=== PATIENT | female | born 1960 | race Caucasian/White ===

== ENCOUNTER 2023-08-16 14:51 | Observation (INO) | payer BC ==
--- NOTE | 2023-08-16 16:09 | ED ---
General Adult HPI - General Chief complaint: Recheck/Abnormal Lab/Rx Stated complaint: Abd Pain Time Seen by Provider: 08/16/23 15:45 Source: patient, RN notes reviewed, old records reviewed Mode of arrival: ambulatory Limitations: no limitations - History of Present Illness Initial comments: This is a 63-year-old female who presents to the emergency department stating that this morning she went over to [facility] and was diagnosed with acute appendicitis and they told her she needed to go to a facility that the surgeon. Patient came here still complaining of right lower quadrant abdominal pain which she states has been ongoing for couple of days. Patient denies any fever chills patient states she does have some lower back pain. Patient states she has been a little queasy but not vomited yet. - Related Data Allergies Allergy/AdvReac Type Severity Reaction Status Date / Time Sulfa (Sulfonamide Allergy Dyspnea Verified 08/16/23 15:14 Antibiotics) sulfamethoxazole Allergy Dyspnea Verified 08/16/23 15:14 [From Bactrim] trimethoprim [From Bactrim] Allergy Dyspnea Verified 08/16/23 15:14 Review of Systems ROS Statement: Those systems with pertinent positive or pertinent negative responses have been documented in the HPI. ROS Other: All systems not noted in ROS Statement are negative. 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 Patient is nontoxic and well- hydrated and is in mild distress. ENT: Neck is soft and supple. No significant lymphadenopathy is noted. Oropharynx is clear. Moist mucous membranes. Neck has full range of motion without eliciting any pain. EYES: The sclera were anicteric and conjunctiva were pink and moist. Extraocular movements were intact and pupils were equal round and reactive to light. Eyelids were unremarkable. PULMONARY: Unlabored respirations. Good breath sounds bilaterally. No audible rales rhonchi or wheezing was noted. CARDIOVASCULAR: There is a regular rate and rhythm without any murmurs gallops or rubs. ABDOMEN: Right lower quadrant abdominal pain with rebound SKIN: Skin is clear with no lesions or rashes and otherwise unremarkable. NEUROLOGIC: Patient is alert and oriented x3. Cranial nerves II through XII are grossly intact. Motor and sensory are also intact. Normal speech, volume and content. Symmetrical smile. MUSCULOSKELETAL: Normal extremities with adequate strength and full range of motion. LYMPHATICS: No significant lymphadenopathy is noted PSYCHIATRIC: Normal psychiatric evaluation. Limitations: no limitations Course Vital Signs 08/16/23 08/16/23 15:07 16:35 Temperature 98.1 F 98.1 F Pulse Rate 75 77 Respiratory 18 16 Rate Blood Pressure 161/87 140/94 O2 Sat by Pulse 100 100 Oximetry Medical Decision Making - Medical Decision Making Was pt. sent in by a medical professional or institution (, PA, OFFICE CLERK ROUTINE, urgent care, hospital, or fdc...) When possible be specific @ -Patient was sent in by [facility] however they did not call our ER Did you speak to anyone other than the patient for history (EMS, parent, family, police, friend...)? What history was obtained from this source @ -No Did you review nursing and triage notes (agree or disagree)? Why? @ -I reviewed and agree with nursing and triage notes Were old charts reviewed (outside hosp., previous admission, EMS record, old EKG , old radiological studies, urgent care reports/EKG's, fdc records)? Report findings @ -No old charts were reviewed Differential Diagnosis (chest pain, altered mental status, abdominal pain women, abdominal pain men, vaginal bleeding, weakness, fever, dyspnea, syncope, headache, dizziness, GI bleed, back pain, seizure, CVA, palpatations, mental health, musculoskeletal)? @ -Differential Abdominal Pain Women: Appendicitis, Cholecystitis, diverticulosis, ischemic bowel, pancreatitis, hepatitis, UTI, gastroenteritis, AAA, incarcerated hernia, bowel obstruction, constipation, inflammatory bowel, hepatitis, peptic ulcer disease, splenic infarction, perforated viscus, vulvitis, ovarian torsion, PID, kidney stone, placenta abruption, this is not meant to be an all-inclusive list EKG interpreted by me (3pts min.). @ -As above X-rays interpreted by me (1pt min.). @ -None done CT interpreted by me (1pt min.). @ -None done U/S interpreted by me (1pt. min.). @ -None done What testing was considered but not performed or refused? (CT, X-rays, U/S, labs)? Why? @ -None What meds were considered but not given or refused? Why? @ -None Did you discuss the management of the patient with other professionals (professionals i.e. , PA, OFFICE CLERK ROUTINE, lab, RT, psych nurse, social media campaign manager, drug and alcohol treatment specialist, teacher, safety and security officer, lead case manager)? Give summary @ -I spoke with Dr. Farfan he agreed to meet the patient Was smoking cessation discussed for >3mins.? @ -No Was critical care preformed (if so, how long)? @ -No Were there social determinants of health that impacted care today? How? (Homelessness, low income, unemployed, alcoholism, drug addiction, transportation, low edu. Level, literacy, decrease access to med. care, mcc, rehab)? @ -No Was there de-escalation of care discussed even if they declined (Discuss DNR or withdrawal of care, Hospice)? DNR status @ -No What co-morbidities impacted this encounter? (DM, HTN, Smoking, COPD, CAD, Cancer, CVA, ARF, Chemo, Hep., AIDS, mental health diagnosis, sleep apnea, morbid obesity)? @ -None Was patient admitted / discharged? Hospital course, mention meds given and route, prescriptions, significant lab abnormalities, going to OR and other pertinent info. @ -I reviewed the CAT scan that the patient brought with her. I spoke with Dr. Farfan she does have acute appendicitis. Patient will be admitted and Dr. Pruitt will take her to surgery. Patient also started on antibiotics. Undiagnosed new problem with uncertain prognosis? @ -No Drug Therapy requiring intensive monitoring for toxicity (Heparin, Nitro, Insulin, Cardizem)? @ -No Were any procedures done? @ -No Diagnosis/symptom? @ -Acute appendicitis Acute, or Chronic, or Acute on Chronic? @ -Acute Uncomplicated (without systemic symptoms) or Complicated (systemic symptoms)? @ -Complicated Side effects of treatment? @ -No Exacerbation, Progression, or Severe Exacerbation? @ -No Poses a threat to life or bodily function? How? (Chest pain, [place], [place], pneumonia, PE, COPD, DKA, ARF, appy, cholecystitis, CVA, Diverticulitis, Homicidal, Suicidal, threat to staff... and all critical care pts) @ -Yes this could lead to sepsis and endorgan dysfunction Disposition Clinical Impression: Acute appendicitis Disposition: ADMITTED IP TO THIS HOSP Referrals: Fish Hernandez MD [Primary Care Provider] - 1-2 days Time of Disposition: 16:52
[2023-08-16] MEDS: PIPERACILLIN-TAZOBACTAM 3.375 GM in SODIUM CHLORIDE 0.9% 100 ML IVPB STA (16:29)
[2023-08-16 16:48] LABS: Basophils # (A) 0.1 k/uL (0-0.2); Basophils % (A) 1 %; Eosinophils # (A) 0.3 k/uL (0-0.7); Eosinophils % (A) 3 %; HCT 45.1 % (34.0-46.0); HGB 14.5 gm/dL (11.4-16.0); Lymphocytes # (A) 2.5 k/uL (1.0-4.8); Lymphocytes % (A) 25 %; MCH 27.1 pg (25.0-35.0); MCHC 32.2 g/dL (31.0-37.0); MCV 84.1 fL (80.0-100.0); Mean Platelet Volume 8.4; Monocytes # (A) 0.6 k/uL (0-1.0); Monocytes % (A) 6 %; Neutrophils # (A) 6.4 k/uL (1.3-7.7); Neutrophils % (A) 64 %; Platelet Count 332 k/uL (150-450); RBC 5.36 m/uL (3.80-5.40); RDW 13.7 % (11.5-15.5); WBC 10.1 k/uL (3.8-10.6)
[2023-08-16 16:59] LABS: ALT 28 U/L (4-34); AST 28 U/L (14-36); African American GFR (CKD) >90 (>60 ml/min/1.73 sqM); Albumin 4.3 g/dL (3.5-5.0); Alkaline Phosphatase 88 U/L (38-126); Amylase 49 U/L (30-110); Anion Gap 6 mmol/L; Blood Urea Nitrogen 19 mg/dL (7-17); Calcium 9.8 mg/dL (8.4-10.2); Carbon Dioxide 26 mmol/L (22-30); Chloride 106 mmol/L (98-107); Glucose 95 mg/dL (74-99); Lipase 67 U/L (23-300); Non-African American GFR(CKD) 86 (>60 ml/min/1.73 sqM); Potassium 4.5 mmol/L (3.5-5.1); Sodium 138 mmol/L (137-145); Total Bilirubin 0.5 mg/dL (0.2-1.3); Total Protein 7.3 g/dL (6.3-8.2)
[2023-08-16] MEDS: SODIUM CHLORIDE 0.9% 1,000 ML IV ONE ×2 (17:10→20:17)
--- NOTE | 2023-08-16 19:52 | P.GSHP ---
History of Present Illness H&P Date: 08/16/23 Chief Complaint: Acute appendicitis 63-year-old female comes to the hospital after being seen apparently at [facility]. She underwent CAT scan for complaints of right lower abdominal pain. CAT scan apparently showed appendicitis and she was discharged home with plans to go to a different facility that had surgical coverage. Patient having some radiation of pain to the lower back. Mild anorexia. No nausea or vomiting. No fevers. CAT scan reviewed and does show acute appendicitis. White blood cell count currently normal. Surgical history includes cholecystectomy and hernia. 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 History of Any Multi-Drug Resistant Organisms: None Reported Past Surgical History: Cholecystectomy, Hernia Repair Past Psychological History: No Psychological Hx Reported Smoking Status: Former smoker Past Alcohol Use History: Occasional Past Drug Use History: None Reported Medications and Allergies Home Medications Medication Instructions Recorded Confirmed Type Multivitamins, Thera [Multivitamin 1 tab PO DAILY 08/16/23 08/16/23 History (formulary)] Turmeric Root Extract [Turmeric] 500 mg PO DAILY 08/16/23 08/16/23 History lisinopriL [Zestril] 10 mg PO DAILY 08/16/23 08/16/23 History Allergies Allergy/AdvReac Type Severity Reaction Status Date / Time Sulfa (Sulfonamide Allergy Dyspnea Verified 08/16/23 17:55 Antibiotics) sulfamethoxazole Allergy Dyspnea Verified 08/16/23 17:55 [From Bactrim] trimethoprim [From Bactrim] Allergy Dyspnea Verified 08/16/23 17:55 Surgical - Exam Vital Signs Temp Pulse Resp BP Pulse Ox 98.1 F 75 18 161/87 100 08/16/23 15:07 08/16/23 15:07 08/16/23 15:07 08/16/23 15:07 08/16/23 15:07 Physical exam: General: Well-developed, well-nourished HEENT: Normocephalic, sclerae nonicteric Abdomen: Right lower quadrant tenderness nondistended Extremities: No edema Neuro: Alert and oriented Results - Labs 08/16/23 16:14 08/16/23 16:14 Abnormal Lab Results - Last 24 Hours (Table) 08/16/23 Range/Units 16:14 BUN 19 H (7-17) mg/dL Diabetes panel 08/16/23 Range/Units 16:14 Sodium 138 (137-145) mmol/L Potassium 4.5 (3.5-5.1) mmol/L Chloride 106 (98-107) mmol/L Carbon Dioxide 26 (22-30) mmol/L BUN 19 H (7-17) mg/dL Creatinine 0.75 (0.52-1.04) mg/dL Glucose 95 (74-99) mg/dL Calcium 9.8 (8.4-10.2) mg/dL AST 28 (14-36) U/L ALT 28 (4-34) U/L Alkaline Phosphatase 88 (38-126) U/L Total Protein 7.3 (6.3-8.2) g/dL Albumin 4.3 (3.5-5.0) g/dL Calcium panel 08/16/23 Range/Units 16:14 Calcium 9.8 (8.4-10.2) mg/dL Albumin 4.3 (3.5-5.0) g/dL Pituitary panel 08/16/23 Range/Units 16:14 Sodium 138 (137-145) mmol/L Potassium 4.5 (3.5-5.1) mmol/L Chloride 106 (98-107) mmol/L Carbon Dioxide 26 (22-30) mmol/L BUN 19 H (7-17) mg/dL Creatinine 0.75 (0.52-1.04) mg/dL Glucose 95 (74-99) mg/dL Calcium 9.8 (8.4-10.2) mg/dL Adrenal panel 08/16/23 Range/Units 16:14 Sodium 138 (137-145) mmol/L Potassium 4.5 (3.5-5.1) mmol/L Chloride 106 (98-107) mmol/L Carbon Dioxide 26 (22-30) mmol/L BUN 19 H (7-17) mg/dL Creatinine 0.75 (0.52-1.04) mg/dL Glucose 95 (74-99) mg/dL Calcium 9.8 (8.4-10.2) mg/dL Total Bilirubin 0.5 (0.2-1.3) mg/dL AST 28 (14-36) U/L ALT 28 (4-34) U/L Alkaline Phosphatase 88 (38-126) U/L Total Protein 7.3 (6.3-8.2) g/dL Albumin 4.3 (3.5-5.0) g/dL Assessment and Plan (1) Acute appendicitis Narrative/Plan: 63-year-old female with acute appendicitis. Will proceed with laparoscopic, possible open appendectomy at this time. Risks of bleeding, infection, scarring, hernia, conversion to an open procedure, cardiac and respiratory compl ications, injury to the bladder small bowel or ureter discussed. She understands and wishes to proceed. Current Visit: Yes Status: Acute Code(s): K35.80 - UNSPECIFIED ACUTE APPENDICITIS SNOMED Code(s): 27393992
[2023-08-16] MEDS ORDERED: ONDANSETRON 4 MG/2 ML VIAL ONE (20:17)
[2023-08-16] MEDS ORDERED: fentaNYL (PF) 50 MCG/ML 2 ML AMP ONE (20:17)
[2023-08-16] MEDS ORDERED: ROCURONIUM 10 MG/ML (5 ML VIAL) IV ONE (20:17)
[2023-08-16] MEDS ORDERED: NEOSTIGMINE 1 MG/ML 10 ML VIAL ONE (20:17)
[2023-08-16] MEDS ORDERED: LIDOCAINE 1% INJ 10MG/ML (20 ML MDV) ONE (20:17)
[2023-08-16] MEDS ORDERED: SUCCINYLCHOLINE CHLORIDE 200 MG/10 ML VIAL IV ONE (20:17)
[2023-08-16] MEDS ORDERED: PROPOFOL 10 MG/ML 20 ML VIAL IV ONE (20:17)
[2023-08-16] MEDS ORDERED: MIDAZOLAM 2 MG/2 ML VIAL ONE (20:17)
[2023-08-16] MEDS ORDERED: HEPARIN SODIUM,PORCINE 5,000 UNIT/ML 1 ML VIAL ONE (20:17)
[2023-08-16] MEDS ORDERED: DEXAMETHASONE SOD PHOSPHATE 4 MG/ML 1 ML VIAL ONE (20:17)
[2023-08-16] MEDS ORDERED: GLYCOPYRROLATE 0.2 MG/ML 2 ML VIAL ONE (20:17)
[2023-08-16] MEDS: BUPIVACAINE (PF) 0.25% 30 ML VIAL SQ ONE ×3 (20:31→20:35)
[2023-08-16] MEDS ORDERED: ONDANSETRON 4 MG/2 ML VIAL IVP PRN (21:03)
[2023-08-16] MEDS ORDERED: HYDROmorphone 0.5 MG/0.5 ML SYRINGE IVP PRN (21:03)
[2023-08-16] MEDS ORDERED: HYDROmorphone 1 MG/ML 1 ML SYRINGE IVP PRN (21:03)
[2023-08-16] MEDS ORDERED: NALOXONE 0.4 MG/ML 1 ML VIAL IV PRN (21:03)
[2023-08-16] MEDS ORDERED: ACETAMINOPHEN TAB 325 MG TAB PO PRN (21:03)
[2023-08-16] MEDS ORDERED: traMADol 50 MG TAB PO PRN (21:03)
[2023-08-16] MEDS ORDERED: HYDROcodone/APAP 5-325MG 1 EACH TAB PO PRN (21:03)
--- NOTE | 2023-08-16 21:07 | P.OP ---
Date of Procedure: 08/16/23 Procedure(s) Performed: PREOPERATIVE DIAGNOSIS: Acute appendicitis POSTOPERATIVE DIAGNOSIS: Same PROCEDURE: Laparoscopic appendectomy SURGEON: Naheed EBL: 5 cc ANESTHESIA: General COMPLICATIONS: None OPERATIVE PROCEDURE: The patient was brought and placed on the operating table in the supine position. The patient was placed under general anesthesia. The abdomen was prepped and draped in the usual sterile fashion. A small curvilinear supraumbilical incision was made. The fascia was retracted anteriorly with [place] forceps. The Veress needle was advanced into the peritoneal cavity. The saline drop test was normal. Insufflation took place to 15 mmHg. A 5 mm trocar was then placed. An additional 5 mm suprapubic trocar was placed under direct visualization as well as a 12 mm left lower quadrant trocar under direct visualization. The appendix was inspected. It was acutely inflamed. The mesoappendix was dissected. The base of the appendix was divided using a linear 45 mm intestinal stapler. The mesentery itself was divided using ligature. The area was then irrigated. No further purulence or bleeding was seen. The appendix was brought out of the peritoneal cavity through the left lower quadrant trocar site with an Endo Catch bag. The fascia at the 12 mm site was closed using a Fabio-Lane 0 Vicryl stitch. The skin at all 3 sites was closed using 4-0 Monocryl sutures. Skin glue was then applied. DISPOSITION: Stable to recovery room
[2023-08-16] MEDS: HYDROmorphone 0.5 MG/0.5 ML SYRINGE IVP ONE ×2 (21:13→21:20)
[2023-08-16] MEDS: LACTATED RINGERS 1,000 ML IV ONE (21:46)
[2023-08-16] MEDS ORDERED: SIMETHICONE 80 MG CHEWABLE PO PRN (22:14)
[2023-08-16] MEDS: ACETAMINOPHEN IV (For NPO) 1,000 MG in EMPTY BAG 1 BAG IVPB ONE (22:19)
[2023-08-16 22:27] VITALS: RESP 16
[2023-08-16] MEDS: PIPERACILLIN-TAZOBACTAM 3.375 GM in SODIUM CHLORIDE 0.9% 100 ML IVPB SCH (23:56)
[2023-08-16] MEDS: D5-0.45% NACL WITH KCL 20MEQ/L 1,000 ML IV SCH (23:57)
[2023-08-16] MEDS: KETOROLAC 15 MG/ML 1 ML VIAL IVP SCH (23:57)
[2023-08-16] MEDS: HEPARIN SODIUM,PORCINE 5,000 UNIT/ML 1 ML VIAL SQ SCH (23:58)
[2023-08-17 00:37] VITALS: TEMP 97.3
[2023-08-17] MEDS: PANTOPRAZOLE 40 MG/10 ML VIAL IV SCH (09:02)
[2023-08-17] MEDS: MULTIVITAMINS, THERA 1 EACH TAB PO SCH (09:03)
[2023-08-17] MEDS: lisinopriL 10 MG TAB PO SCH (09:03)
[2023-08-17 09:17] VITALS: BP 142/82; PULSE 57
--- NOTE | 2023-08-17 14:36 | P.PN ---
Subjective Progress Note Date: 08/17/23 NAEON. No N/V. No F/C. NO SOB or CP. Ambulatory and voiding. Admits to flatus, no BM. Tolerating diet. Objective - Vital Signs Vital signs: Vital Signs Temp 97.3 F L 08/17/23 02:00 Pulse 57 L 08/17/23 07:53 Resp 16 08/17/23 07:53 BP 142/82 08/17/23 07:53 Pulse Ox 100 08/17/23 07:53 FiO2 Intake & Output 08/16/23 08/17/23 08/17/23 18:59 06:59 18:59 Intake Total 2059 Output Total Balance 2054 Weight 76.204 kg Intake: IV 700 Intake, IV Titration 1000 Amount ACETAMINOPHEN IV (For NPO 100 ) 1,000 mg In Empty Bag 1 bag @ 400 mls/hr IVPB ONCE ONE Rx#:[id number] D5-0.45% NaCl with KCl 800 20Meq/l 1,000 ml @ 75 mls /hr IV .[id number] [facility] Rx#: [id number] Piperacillin-Tazobactam 3 100 .375 gm In Sodium Chloride 0.9% 100 ml @ 25 mls/hr IVPB Q8HR [facility] Rx# :[id number] Oral 360 Output: Estimated Blood Loss 5 Other: # Voids 0 1 - Exam Gen: AxO, NAD Pulm: non-labored respirations Abd: soft, non-tender, non-distended. No guarding/rebound/rigidity Extrem: no edema seen - Labs CBC & Chem 7: 08/16/23 16:14 08/16/23 16:14 Labs: Abnormal Lab Results - Last 24 Hours (Table) 08/16/23 Range/Units 16:14 BUN 19 H (7-17) mg/dL Assessment and Plan Assessment: Patient is a 63 year old female who is s/p laproscopic appendectomy Plan: -Diet as tolerated -PRN pain and nausea control -DVT PPx -Okay to DC home Barry Kang MD General Surgery
== END 2023-08-17 15:09 | disposition home or self-care (01) ==
LOC: EC 14:51 → 6NMEDSUR 16:54 → 5NMEDONC 17:13
PROVIDERS: ADMIT Surgery; ATTEND Surgery
DX: K35.32 Acute appendicitis with perforation, localized peritonitis, and gangrene, without abscess (principal); I10 Essential (primary) hypertension; Z88.1 Allergy status to other antibiotic agents; Z88.2 Allergy status to sulfonamides; Z87.891 Personal history of nicotine dependence; Z90.49 Acquired absence of other specified parts of digestive tract; Z98.890 Other specified postprocedural states
CPT/HCPCS: 96372 ×2; 99284; 36415; 88304; 80053; 82150; 83690; 85025; 44970; G0378 ×2; J2543 ×2; J2250; J0330; J1644 ×2; J1100; J2710; J2405; J2001; J3010; J0131; J1885 ×2; J2704; C9113; J1170; J0665

== ENCOUNTER 2023-11-29 12:32 | Day surgery (SDC) | payer BC ==
[2023-11-25 11:55] VITALS: BMI 26.9
[2023-11-29] MEDS: LACTATED RINGERS 1,000 ML IV SCH (14:16)
[2023-11-29 14:22] VITALS: TEMP 97.5
[2023-11-29] MEDS ORDERED: PROPOFOL 10 MG/ML 20 ML VIAL IV ONE (15:17)
--- NOTE | 2023-11-29 15:49 | P.PCN ---
Date of Procedure: 11/29/23 Procedure(s) Performed: BRIEF HISTORY: Patient is a 63-year-old pleasant white female scheduled for an elective colonoscopy as a part of screening for colon cancer and family history of colon cancer. She was diagnosed with genetic mutation with MUHTY gene and was advised to have screening colonoscopy every 1 to 2 years., PROCEDURE PERFORMED: Colonoscopy with snare polypectomy. PREOPERATIVE DIAGNOSIS: Screening for colon cancer/family history of colon cancer/genetic mutation for colon cancer. IV sedation per Anesthesia. PROCEDURE: After informed consent was obtained, the patient, was brought into the endoscopy unit. IV sedation was administered by Anesthesia under continuous monitoring. Digital rectal examination was normal. Initially the Olympus CF-160 flexible video colonoscope was then inserted in the rectum, gradually advanced into the cecum without any difficulty. Careful examination was performed as the scope was gradually being withdrawn. Ileocecal valve and the appendiceal orifice were visualized and appeared normal. Prep was excellent. Mucosa of the cecum, appeared normal. The ascending colon there was a 1 cm broad-based polyp removed by snare polypectomy. Rest of the ascending colon, transverse colon, descending colon, appeared normal. The sigmoid colon there is a 5 mm polyp removed by snare polypectomy. Sigmoid colon, and rectum appeared normal. Retroflexion was performed in the rectum and no lesions were seen. The patient tolerated the procedure well. IMPRESSION: 1 cm broad-based descending colon polyp status post polypectomy 5 mm sigmoid colon polyp status post polypectomy RECOMMENDATIONS: Findings of this examination were discussed with the patient as well as her family. She was advised to follow-up with the biopsy results and recommended colonoscopy every 1 to 2 years because of genetic mutation.
[2023-11-29 16:08] VITALS: BP 149/92; PULSE 85; RESP 18
== END 2023-11-29 16:03 | disposition home or self-care (01) ==
LOC: ORWHC2ENDO 12:32
PROVIDERS: ATTEND Internal Medicine Gastroenterology
DX: Z12.11 Encounter for screening for malignant neoplasm of colon (principal); D12.2 Benign neoplasm of ascending colon; I10 Essential (primary) hypertension; F17.200 Nicotine dependence, unspecified, uncomplicated; Z79.899 Other long term (current) drug therapy; Z98.890 Other specified postprocedural states; Z88.2 Allergy status to sulfonamides; Z86.010 Personal history of colon polyps
CPT/HCPCS: 88305; 45385; J2704

== ENCOUNTER → 2024-04-21 | Day surgery (SDC) | payer BC ==
--- NOTE | 2024-04-28 09:56 | MM ---
Reason for Exam: Post Procedure Mammogram. Last screening mammogram was performed 2 month(s) ago. Patient History: Menarche at age 17. First Full-Term at age 23. Postmenopausal. Patient has history of breast feeding. Mother had breast cancer, age 40. Risk Values: Sabra 5 year model risk: 2.7%. NCI Lifetime model risk: 11.8%. Prior Study Comparison: 12/12/2022 Bilateral MG 3D screening mammo w/cad, Unknown. 03/13/2024 Bilateral MG 3D screening mammo w/cad, Unknown. Tissue Density: Left: The breasts are heterogeneously dense, which may obscure small masses. Pathology Description: Location: 6 o'clock. Marker Left Behind. Needle Type: CelTAXI5.pl Cores: 4 Gauge: 12 The procedure of ultrasound guided core biopsy was explained to the patient. Benefits, alternatives, and risks were discussed. An informed consent was then obtained. The patient was placed in supine positioning for imaging and for the procedure. The overlying skin was prepped and draped in usual sterile fashion. Lidocaine buffered with bicarbonate was used as anesthetic into the skin and subcutaneous tissue up to area of concern in the left 6:00 breast. A caden was made with surgical scalpel. Under ultrasound guidance, a 12-gauge vacuum assisted biopsy gun device was used to obtain 4 core samples. Following this, a biopsy clip was left in lesion. The patient tolerated the procedure well without any immediate complication. The patient was kept in the radiology department for short stay after the procedure and then discharged home in stable condition. Postprocedure mammogram: The patient was transferred to mammography for physician ordered post procedure mammogram for clip placement verification. Impression: Successful, uncomplicated ultrasound guided core biopsy of area of concern in the left 6:00 breast, full pathology results to follow. [facility], , 04/22/2024 8:29 AM. Pathology Results: Result: Malignant, Invasive ductal carcinoma. Pathology and radiology were reviewed. Findings are concordant. LEFT BREAST, SIX O'CLOCK, ULTRASOUND GUIDED CORE BIOPSY: Invasive high grade ductal carcinoma with associated abundant lymphoplasmacytic inflammatory infiltrate (see Surgical Pathology Cancer Case Summary and Comment). Overall Assessment: Malignant Assessment: MG diagnostic mammo LT wo CAD. - Left: Known biopsy proven malignancy, BI-RAD 6. Management: Surgical Consultation of the left breast. Electronically signed and approved by: Esvin Baca M.D. Radiologis
== END ==
LOC: RADUSWWP 12:16
PROVIDERS: ATTEND Internal Medicine
CPT/HCPCS: 77065; 88305; 88341; 88342

== ENCOUNTER → 2024-05-01 | Outpatient (CLI) | payer BC ==
[2024-05-01 13:10] VITALS: BP 146/87; PULSE 92; RESP 16; TEMP 97.9
--- NOTE | 2024-05-01 13:31 | P.GSCN ---
History of Present Illness Consult date: 05/01/24 Reason for Consult: left breast IDC tripple (-) [id number] Requesting physician: Fish Hernandez History of present illness: Radha is a 64 year old female seen in consultation for Dr. Hernandez regarding a biopsy proven high grade invasive ductal cancer. She had a bilateral mammogrma on 03-13-24 which led to a left breast ultrasound. On the mammogram a lesion was seen in the left breast about 9 mm in size. This was personally reviewed and discussed with Dr. Walters, no lesions were seen in the right breast. An ultrasound guided biopsy was done on 04-21-24 which was (+) for a tripple (-) breast cancer. She has a PET scan scheduled for next Saturday. She does not feel anything in her breast. She has not had any surgery on her breast in the past. She is not complaining of any recent trauma or infection in the breast. She is not complaining of any nipple discharge or skin changes in her breast. Patient has had COVID 5 times, has had two vaccines. She had genetic testing done in 2020; she is BRCA (+), MUTHY (+) caffeine: 1 cup/day, and work out drink nicotine: none BCP: about 1 1/2 years hormones: none chocolate: weekly Family History: mother: breast cancer at 40 brother: colon cancer MUTHY (+) multiple cancerous polpys maternal cousins: breast cancer female Hormonal History: menarche: 16 , breast fed: yes, age at first : 23 menopause: 42 Surgical History: tonsillectomy hernia groin two gallbladder appy Medical History: HTN high cholesterol Social History: nicotine:none alcohol: family owns a wine house/drinks on weekends ([facility] [employer]) drugs: none Review of Systems - Constitutional Reports sweats - EENT Eyes: denies blurred vision Ears: bilateral: decreased hearing, tinnitus Ears, nose, mouth and throat: Denies dysphagia - Breasts bilateral: as per HPI - Cardiovascular Reports shortness of breath, Denies chest pain - Respiratory Reports cough - Gastrointestinal Reports as per HPI - Genitourinary Genitourinary: Denies dysuria, Denies hematuria Menstruation: Reports postmenopausal - Musculoskeletal Reports as per HPI - Integumentary Integumentary Comment(s): breast itch Reports unusual bruising, Denies rash - Neurological Denies headaches, Denies syncope - Psychiatric Reports as per HPI - Endocrine Reports fatigue - Hematologic/Lymphatic Reports easy bruising - Allergic/Immunologic Reports seasonal allergies Past Medical History Past Medical History: Hypertension 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, both genes History of Any Multi-Drug Resistant Organisms: None Reported Past Surgical History: Appendectomy, Cholecystectomy, Hernia Repair, Tonsillectomy Additional Past Surgical History / Comment(s): colonoscopy Past Anesthesia/Blood Transfusion Reactions: No Reported Reaction Additional Past Anesthesia/Blood Transfusion Reaction / Comm: no blood transfusion Past Psychological History: No Psychological Hx Reported Smoking Status: Former smoker Past Alcohol Use History: Occasional Past Drug Use History: None Reported - Past Family History Mother Family Medical History: Cancer Brother(s) Family Medical History: Cancer Additional Family Medical History / Comment(s): colon Medications and Allergies Home Medications Medication Instructions Recorded Confirmed Type Multivitamins, Thera [Multivitamin 1 tab PO DAILY 08/16/23 03/24/24 History (formulary)] Turmeric Root Extract [Turmeric] 500 mg PO DAILY 08/16/23 03/24/24 History lisinopriL [Zestril] 10 mg PO DAILY 08/16/23 03/24/24 History Simethicone [Gas-X] 250 mg PO Q4HR PRN 08/17/23 03/24/24 History Allergies Allergy/AdvReac Type Severity Reaction Status Date / Time Sulfa (Sulfonamide Allergy Dyspnea Verified 03/24/24 15:50 Antibiotics) sulfamethoxazole Allergy Dyspnea Verified 03/24/24 15:50 [From Bactrim] trimethoprim [From Bactrim] Allergy Dyspnea Verified 03/24/24 15:50 Surgical - Exam - General no distress - Eyes normal ocular movement - ENT no hearing loss - Neck trachea midline - Respiratory normal respiratory effort - Cardiovascular Rhythm: regular Heart Sounds: normal: S1, S2 - Abdomen Abdomen: soft, non tender, no guarding, no rigid, no rebound - Integumentary normal turgor - Musculoskeletal normal gait - Psychiatric oriented to time, oriented to person, oriented to place, speech is normal, memory intact Breast Exam: BRA: 38C Inspection: Bruising in the lateral aspect of the left breast Palpation: Right breast: Multi positional exam fibrocystic changes no dominant masses or nodules of concern Right axilla: No adenopathy of concern Left breast: Multi positional exam fibrocystic changes, no evidence of infection or hematoma near the area of the biopsy mild ecchymosis Left axilla: No adenopathy of concern Results Mammogram and ultrasound personally reviewed with Dr. Walters and discussed Assessment and Plan Assessment: Impression: Left breast invasive ductal carcinoma triple negative T1 lesion clinically N0M0 BRCA positive Positive strong family history of cancer Patient has been seen by Dr. Olvera and PET scan is pending Plan: Await results of PET scan Presentation of case at tumor board Potential bilateral mastectomy without reconstruction after discussion with the patient and her sister Patient will follow-up after results of PET scan and tumor board results are available CC: Dr. Hernandez
== END ==
LOC: WWCWWP 12:32
PROVIDERS: ATTEND Surgery

== ENCOUNTER → 2024-05-08 | Outpatient (CLI) | payer BC ==
--- NOTE | 2024-05-08 12:44 | PE ---
EXAMINATION TYPE: PET CT fusion skull to thigh DATE OF EXAM: 05/08/2024 CLINICAL INDICATION:Female, 64 years old with history of C50.812 BREAST CANCER; TECHNIQUE: Following the intravenous administration of 13.1 mCi of F-18 FDG, whole body images are performed from the skull base to the midthigh. Images are reviewed on the computer in the coronal, a xial, and sagittal planes. Reconstructed rotating images are created on independent workstation and reviewed on the computer. A non-contrast CT is performed in conjunction with the PET scan. Glucose level 88 mg/dL CT DLP: 484 mGycm, Automated exposure control for dose reduction was used. COMPARISON: CT None, PET/CT None, MRI: None mammography 04/21/2024 FINDINGS: Mediastinal SUV mean is 2.6. Hepatic parenchyma SUV mean is 2.2. SKULL BASE AND NECK: No suspicious radiotracer activity. CHEST, MEDIASTINUM, AND HILAR REGION: Suspicious uptake identified examples include: * Left breast mass measuring up to 12 mm Max SUV 19.4. * Left axillary lymph node max SUV 4.1 measuring 9 mm in short axis. * Right axillary lymph node max SUV 4.0 measuring 8 mm. Possible physiologic uptake: * Right pulmonary hilum lymph nodes max SUV 5.7 * Left pulmonary hilum lymph nodes max SUV 4.5. ABDOMEN AND PELVIS: No suspicious radiotracer activity. MUSCULOSKELETAL STRUCTURES: Patchy uptake in the osseous structures likely physiologic. OTHER CT: * The gallbladder is surgically absent. * The appendix is normal. * Fat-containing umbilical hernia. * Mild cardiomegaly. IMPRESSION: 1. Left breast mass with increased metabolic activity with mild uptake within one normal-sized left axillary lymph node. Additionally there is a right axillary lymph node also with increased uptake. Th e left axillary lymph node is therefore indeterminate. 2. Indeterminate lymph nodes within the mediastinum possibly reactive. [facility], , 05/08/2024 12:41 PM
== END | disposition home or self-care (01) ==
LOC: RADPETMAIN 09:52
PROVIDERS: ATTEND Internal Medicine Hematology & Oncology
CPT/HCPCS: 78815

== ENCOUNTER → 2024-05-22 | Outpatient (CLI) | payer BC ==
[2024-05-22 13:07] VITALS: BP 121/79; PULSE 79; RESP 16; TEMP 98.3
--- NOTE | 2024-05-22 13:14 | P.PN ---
Subjective Progress Note Date: 05/22/24 Principal diagnosis: left breast IDC tripple (-) T1N0M0 History of Present Illness Consult date: 05-22-24 Reason for Consult: left breast IDC tripple (-) T1N0M0 Requesting physician: Fish Hernandez History of present illness: Radha is a 64 year old female seen in consultation for Dr. Hernandez regarding a biopsy proven high grade invasive ductal cancer. She had a bilateral mammogrma on 03-13-24 which led to a left breast ultrasound. On the mammogram a lesion was seen in the left breast about 9 mm in size. This was personally reviewed and discussed with Dr. Walters, no lesions were seen in the right breast. An ultrasound guided biopsy was done on 04-21-24 which was (+) for a tripple (-) breast cancer. She does not feel anything in her breast. She has not had any surgery on her breast in the past. She is not complaining of any recent trauma or infection in the breast. She is not complaining of any nipple discharge or skin changes in her breast. Case presented at tumor board on 05-19-24. Patient at this time states that her genetic testing is actually negative for the BRCA1 gene but positive for the MUTHY mutation. She is now considering whether she would rather have a lumpectomy with radiation therapy versus a mastectomy. She had a PET scan performed PET scan was reviewed personally and at tumor board with the radiologist. The PET scan does show minimal uptake in both axillas as well as the mediastinum. It is felt that the mediastinal uptake is most likely reactive in nature. It is felt that the axillary nodes are very small and we discussed doing an ultrasound it was felt that would not be helpful and that a sentinel node biopsy will be performed at the time of surgery. Patient has had COVID 5 times, has had two vaccines. She had genetic testing done in 2020; she is BRCA (-), MUTHY (+), PMS2 VUS caffeine: 1 cup/day, and work out drink nicotine: none BCP: about 1 1/2 years hormones: none chocolate: weekly Family History: mother: breast cancer at 40 brother: colon cancer MUTHY (+) multiple cancerous polpys maternal cousins: breast cancer female Hormonal History: menarche: 16 , breast fed: yes, age at first : 23 menopause: 42 Surgical History: tonsillectomy hernia groin two gallbladder appy Medical History: HTN high cholesterol Social History: nicotine:none alcohol: family owns a wine house/drinks on weekends ([facility]) drugs: none Review of Systems - Constitutional Reports sweats - EENT Eyes: denies blurred vision Ears: bilateral: decreased hearing, tinnitus Ears, nose, mouth and throat: Denies dysphagia - Breasts bilateral: as per HPI - Cardiovascular Reports shortness of breath, Denies chest pain - Respiratory Reports cough - Gastrointestinal Reports as per HPI - Genitourinary Genitourinary: Denies dysuria, Denies hematuria Menstruation: Reports postmenopausal - Musculoskeletal Reports as per HPI - Integumentary Integumentary Comment(s): breast itch Reports unusual bruising, Denies rash - Neurological Denies headaches, Denies syncope - Psychiatric Reports as per HPI - Endocrine Reports fatigue - Hematologic/Lymphatic Reports easy bruising - Allergic/Immunologic Reports seasonal allergies Past Medical History Past Medical History: Hypertension 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, both genes History of Any Multi-Drug Resistant Organisms: None Reported Past Surgical History: Appendectomy, Cholecystectomy, Hernia Repair, Tonsillectomy Additional Past Surgical History / Comment(s): colonoscopy Past Anesthesia/Blood Transfusion Reactions: No Reported Reaction Additional Past Anesthesia/Blood Transfusion Reaction / Comm: no blood transfusion Past Psychological History: No Psychological Hx Reported Smoking Status: Former smoker Past Alcohol Use History: Occasional Past Drug Use History: None Reported - Past Family History Mother Family Medical History: Cancer Brother(s) Family Medical History: Cancer Additional Family Medical History / Comment(s): colon Medications and Allergies Home Medications Medication Instructions Recorded Confirmed Type Multivitamins, Thera [Multivitamin 1 tab PO DAILY 08/16/23 03/24/24 History (formulary)] Turmeric Root Extract [Turmeric] 500 mg PO DAILY 08/16/23 03/24/24 History lisinopriL [Zestril] 10 mg PO DAILY 08/16/23 03/24/24 History Simethicone [Gas-X] 250 mg PO Q4HR PRN 08/17/23 03/24/24 History Allergies Allergy/AdvReac Type Severity Reaction Status Date / Time Sulfa (Sulfonamide Allergy Dyspnea Verified 03/24/24 15:50 Antibiotics) sulfamethoxazole Allergy Dyspnea Verified 03/24/24 15:50 [From Bactrim] trimethoprim [From Bactrim] Allergy Dyspnea Verified 03/24/24 15:50 Objective - Constitutional General appearance: Present: cooperative - EENT Eyes: Present: EOMI ENT: Present: hearing grossly normal - Neck Neck: Present: normal ROM - Respiratory Respiratory: bilateral: CTA - Cardiovascular Rhythm: regular Heart sounds: normal: S1, S2 - Integumentary Integumentary: Present: normal turgor - Musculoskeletal Musculoskeletal: Present: gait normal - Psychiatric Psychiatric: Present: A&O x's 3, appropriate affect, intact judgment & insight - Additional findings Additional findings: Breast Exam: BRA: 38C Inspection: Bruising in the lateral aspect of the left breast Palpation: Right breast: Multi positional exam fibrocystic changes no dominant masses or nodules of concern Right axilla: No adenopathy of concern Left breast: Multi positional exam fibrocystic changes, no evidence of hematoma or infection near the biopsy site Left axilla: No adenopathy of concern Assessment and Plan Assessment: Impression: Left breast invasive ductal carcinoma triple negative T1 lesion clinically N0M0 BRCA - Positive strong family history of cancer Patient has been seen by Dr. Olvera and PET scan as noted Plan: The patient would like to have a bilateral mastectomy. We have discussed reconstruction and at this time she has declined. Bilateral mastectomy, bilateral sentinel node injection, bilateral sentinel node biopsy, possible bilateral right or left axillary node dissection. The patient understands the risks and benefits and wishes to proceed. CC: Dr. Hernandez
== END ==
LOC: WWCWWP 12:02
PROVIDERS: ATTEND Surgery
DX: C50.912 Malignant neoplasm of unspecified site of left female breast (principal); Z80.3 Family history of malignant neoplasm of breast; Z87.891 Personal history of nicotine dependence; Z88.2 Allergy status to sulfonamides; Z88.1 Allergy status to other antibiotic agents; Z86.16 Personal history of COVID-19; Z88.8 Allergy status to other drugs, medicaments and biological substances

== ENCOUNTER 2024-05-26 11:19 | Day surgery (SDC) | payer BC ==
[2024-05-26] MEDS: IV FLUID CONTINUATION 1,000 ML IV ONE ×2 (11:47→15:34)
[2024-05-26] MEDS: LACTATED RINGERS 1,000 ML IV SCH (11:55)
[2024-05-26] MEDS: ACETAMINOPHEN TAB 500 MG TAB PO PRN (11:57)
[2024-05-26] MEDS: SCOPOLAMINE 1 MG/72 HR PATCH TRANSDERM ONE (11:57)
[2024-05-26] MEDS: DEXAMETHASONE SOD PHOSPHATE 4 MG/ML 1 ML VIAL IV ONE (11:57)
[2024-05-26] MEDS: ONDANSETRON 4 MG/2 ML VIAL IVP ONE (11:57)
[2024-05-26] MEDS: MIDAZOLAM 2 MG/2 ML VIAL IV PRN (12:21)
--- NOTE | 2024-05-26 12:29 | P.NAPBC ---
NAPBC Queries - NAPBC Queries Was patient's case review presented at [facility] tumor board? If no, comment.: Yes Was patient's pathology reviewed at [facility]? If no, comment.: Yes Was breast conservation surgery offered? If no, comment.: Yes Was sentinel node biopsy offered? If no, comment.: Yes Was diagnosis confirmed by percutaneous core biopsy? If no, comment.: Yes Is patient mastectomy patient?: Yes Was a preop referral to reconstructive surgeon offered?: Yes (patient declined) Clinical Stage: left breast invasive ductal cancer [id number]
[2024-05-26] MEDS: HEPARIN SODIUM,PORCINE 5,000 UNIT/ML 1 ML VIAL SQ PRN (12:46)
--- NOTE | 2024-05-26 13:42 | P.ANPRN ---
Procedure Note - Anesthesia - Nerve Block Performed Bilateral Pec 1 and Pec 2 Single Time Out Performed: Yes (1228) Date of Procedure: 05/26/24 Location of Patient: PreOp Indication: Acute Post-Operative Pain, Dx/Pain Location (breast), Requested by Surgeon Specifically requested for management of pain by DrAshley: Lissette Thapa Sedation Type: Sedate with meaningful contact maintained Preparation: Sterile Prep Position: Supine Catheter: None Needle Types: Pajunk Needle Gauge: 21 (100 mm) Ultrasound used to visualize needle placement: Yes Ultrasound used to observe medication spread: Yes Injectate: 0.5% Ropivacaine (see comment for volume) (20 cc + 10 cc saline + 4mg of decadron on each side) Blood Aspirated: No Pain Paresthesia on Injection Noted: No Resistance on Injection: Normal Image Stored and Saved: Yes Events: Uneventful and Well Tolerated
[2024-05-26] MEDS ORDERED: PROPOFOL 10 MG/ML 20 ML VIAL IV ONE (13:55)
[2024-05-26] MEDS ORDERED: SODIUM CHLORIDE 0.9% (PF) 10 ML VIAL ONE (13:55)
[2024-05-26] MEDS ORDERED: MIDAZOLAM 2 MG/2 ML VIAL ONE (13:55)
[2024-05-26] MEDS ORDERED: HYDROmorphone (PF) 1 MG/ML ONE (13:55)
[2024-05-26] MEDS ORDERED: LIDOCAINE 1% INJ 10MG/ML (20 ML MDV) ONE (13:55)
[2024-05-26] MEDS ORDERED: KETAMINE HCL IN 0.9 % NACL 50 MG/5 ML SYRINGE ONE (13:55)
[2024-05-26] MEDS ORDERED: SUCCINYLCHOLINE CHLORIDE 200 MG/10 ML VIAL IV ONE (13:55)
[2024-05-26] MEDS ORDERED: fentaNYL (PF) 50 MCG/ML 2 ML AMP ONE (13:55)
[2024-05-26] MEDS ORDERED: ROPIVACAINE 5 MG/ML 30 ML VIAL ONE (13:55)
[2024-05-26] MEDS ORDERED: DEXAMETHASONE SOD PHOSPHATE 4 MG/ML 1 ML VIAL ONE (13:55)
[2024-05-26] MEDS: LIDOCAINE 1% INJ 10MG/ML (20 ML MDV) SQ ONE ×2 (15:02→17:34)
[2024-05-26] MEDS ORDERED: HYDROmorphone 1 MG/ML 1 ML SYRINGE IVP PRN (17:14)
[2024-05-26] MEDS ORDERED: NALOXONE 0.4 MG/ML 1 ML VIAL IV PRN (17:14)
[2024-05-26] MEDS ORDERED: ONDANSETRON 4 MG/2 ML VIAL IVP PRN (17:14)
--- NOTE | 2024-05-26 17:14 | P.BCAON ---
Date of Procedure: 05/26/24 Preoperative Diagnosis: Left breast invasive ductal carcinoma Postoperative Diagnosis: Same Procedure(s) Performed: Bilateral mastectomy with bilateral sentinel node injection, bilateral sentinel node biopsy Anesthesia: GUILLE Surgeon: Lissette Thapa Estimated Blood Loss (ml): 25 IV fluids (ml): 1,200 Pathology: other (Bilateral breast, bilateral sentinel lymph nodes) Condition: stable Disposition: floor Indications for Procedure: Biopsy-proven left breast invasive ductal carcinoma/PET scan showing some suspicious bilateral axillary lymph nodes Operative Findings: Fibrofatty breast tissue Description of Procedure: The patient was taken to the operating room and following induction of anesthesia the neoprobe was used to interrogate both axillas. Minimal radioactivity was noted in either axilla. Therefore 5 cc of half percent methylene blue was injected in the right periareolar area after it had been prepped using alcohol, this was followed by prepping the left periareolar area and injecting 5 cc of half-strength methylene blue. Both breasts and axilla were prepped and draped in a sterile fashion. The right side was approached initially. A marking pen was used to shayla for the superior and inferior skin flaps. These flaps were developed down to the pectoralis muscle. The breast was removed from medial to lateral being careful to maintain hemostasis using the electrocautery device and the harmonic scalpel. After the breast was dissected to the area of the axilla it was removed. Using the neoprobe an area of radioactivity was identified at this time in the right axilla. A the lymph node was blue as well. This was resected the 10-second count on the lymph node was 769. A second blue lymph node was identified a 10- second count was 106. No further radioactive or blue lymph nodes or palpable lymph nodes of concern were identified. The background 10-second count was 18. The wound was irrigated. After assuring that hemostasis was attained Surgicel in powder form was placed. #10 DAMIÁN drain was placed. The drain was secured using nylon suture. The deep tissues were closed using 3-0 Vicryl suture. The skin was closed using 4-0 Monocryl. 10 cc of 1% lidocaine was injected into the incision. The area of the left breast was approached. A marking pen was used to shayla for superior and inferior skin flaps. These flaps were developed down to the pectoralis muscle. The breast was removed from medial to lateral being careful to maintain hemostasis using the electrocautery device and the harmonic scalpel. After the breast was dissected to the area of the axilla it was removed. Using the neoprobe an area of radioactivity was identified. This was a blue lymph node and the 10-second count on the node was 3754. It was removed and sent as sentinel lymph node on the left. A second lymph node was identified which had a 10-second count of 118, it was also blue. This was also sent as sentinel lymph node. The 10-second background count was 21. After reassured that hemostasis was attained and no further radioactive or blue lymph nodes or palpable lymph nodes of concern were identified the wound was well irrigated. Surgicel in powder form was placed. A #10 DAMIÁN drain was placed. The drain was secured using nylon suture. The deep tissues were closed using 3-0 Vicryl suture, the skin was closed using 4-0 Monocryl. 10 cc of 1% lidocaine was injected into the incision. Surgical glue was applied. A sterile dressing was applied. The patient tolerated the procedure in stable condition. All instrument and sponge counts were correct at the end of the case. - Sentinal Node Biopsy Operation performed with curative intent: Yes Tracer(s) used in upfront surgery (non-neoadjuvant): dye, radioactive tracer All nodes present at end of dye-filled channel removed: Yes All significantly radioactive nodes were removed: Yes All palpably suspicious nodes were removed: Yes Clipped positive nodes identified and removed: N/A
[2024-05-26] MEDS: HYDROmorphone 0.5 MG/0.5 ML SYRINGE IVP PRN (18:17)
[2024-05-26] MEDS: DEXTROSE 5%-0.45% NACL 1,000 ML IV SCH (20:01)
[2024-05-26] MEDS: lisinopriL 10 MG TAB PO SCH (22:26)
[2024-05-26] MEDS: HEPARIN SODIUM,PORCINE 5,000 UNIT/ML 1 ML VIAL SQ SCH (22:26)
[2024-05-26] MEDS: SIMETHICONE 80 MG CHEWABLE PO SCH (23:17)
[2024-05-27 06:17] LABS: Basophils % (A) 0 %; Eosinophils % (A) 0 %; HCT 39.1 % (34.0-46.0); HGB 12.1 gm/dL (11.4-16.0); Hypochromasia Slight; Lymphocytes # (A) 1.5 k/uL (1.0-4.8); Lymphocytes % (A) 12 %; MCH 27.4 pg (25.0-35.0); MCHC 31.1 g/dL (31.0-37.0); MCV 88.3 fL (80.0-100.0); Mean Platelet Volume 8.1; Monocytes # (A) 0.6 k/uL (0-1.0); Monocytes % (A) 5 %; Neutrophils # (A) 9.6 k/uL (1.3-7.7); Neutrophils % (A) 82 %; Platelet Count 286 k/uL (150-450); RBC 4.43 m/uL (3.80-5.40); RDW 13.9 % (11.5-15.5); WBC 11.8 k/uL (3.8-10.6)
[2024-05-27] MEDS: HYDROcodone/APAP 5-325MG 1 EACH TAB PO PRN (06:27)
[2024-05-27 08:04] VITALS: PULSE 60; RESP 18; TEMP 99.5
[2024-05-27 09:39] VITALS: BP 110/67
--- NOTE | 2024-05-27 10:34 | P.PN ---
Subjective Progress Note Date: 05/27/24 Principal diagnosis: Postop day #1 bilateral mastectomy with bilateral sentinel node biopsy Radha is postop day #1 bilateral mastectomy with bilateral sentinel node biopsy. Postoperatively she is doing well. Her pain is under control. She is tolerating her diet. Her DAMIÁN output is serous in nature . The right side is greater than the left but is serous in nature on both sides. Objective - Vital Signs Vital signs: Vital Signs Temp 99.5 F 05/27/24 07:30 Pulse 60 05/27/24 07:30 Resp 18 05/27/24 07:30 BP 110/67 05/27/24 09:10 Pulse Ox 99 05/27/24 07:30 FiO2 Intake & Output 05/26/24 05/27/24 05/27/24 18:59 06:59 18:59 Intake Total 1650 360 Output Total 25 1555 Balance 1625 -1195 Weight 76.3 kg Intake: IV 1650 Oral 360 Output: Drainage 105 Left Anterior Chest 20 Right Anterior Chest 85 Urine 850 Stool 600 Estimated Blood Loss 25 Other: # Voids 1 - Constitutional General appearance: Present: cooperative - EENT Eyes: Present: EOMI ENT: Present: hearing grossly normal - Neck Neck: Present: normal ROM - Respiratory Respiratory: bilateral: CTA - Cardiovascular Rhythm: regular Heart sounds: normal: S1, S2 - Integumentary Integumentary Comment(s): Clean and dry bilaterally, dressings changed, drain stripped Integumentary: Present: normal turgor - Psychiatric Psychiatric: Present: A&O x's 3, appropriate affect, intact judgment & insight - Labs CBC & Chem 7: 05/27/24 05:50 Labs: Abnormal Lab Results - Last 24 Hours (Table) 05/27/24 Range/Units 05:50 WBC 11.8 H (3.8-10.6) k/uL Neutrophils # 9.6 H (1.3-7.7) k/uL Assessment and Plan Assessment: Pression: Patient doing well postoperatively Plan: Discharge home to follow as an outpatient Patient will follow-up on Saturday Patient to follow-up sooner any questions or concerns
--- NOTE | 2024-05-27 10:37 | P.DS ---
Providers Date of admission: 05-26-24 Expected date of discharge: 05/27/24 Attending physician: Lissette Thapa Consults: 05/26/24 17:17 Consult Physician Routine Consulting Provider: Grabiel Weller Consult Reason/Comments: medical managment Do you want consulting provider notified?: Yes Primary care physician: Fish Hernandez MD Hospital Course: The patient is a 64-year-old white female postop day #1 from a bilateral mastectomy with bilateral sentinel node mapping and bilateral sentinel node biopsy. Postoperatively she has done well she is tolerating diet without diff iculty and her pain is under control. She is ready for discharge. Plan - Discharge Summary Discharge Rx Participant: No New Discharge Prescriptions: New oxyCODONE HCL [OxyIR] 5 mg PO Q6H PRN #14 tab PRN Reason: Breakthrough Pain No Action lisinopriL [Zestril] 10 mg PO DAILY Turmeric Root Extract [Turmeric] 500 mg PO DAILY Multivitamins, Thera [Multivitamin (formulary)] 1 tab PO DAILY Simethicone [Gas-X] 250 mg PO Q4HR PRN PRN Reason: Indigestion Vit D (Unk) 1 tab PO DAILY Discharge Medication List Multivitamins, Thera [Multivitamin (formulary)] 1 tab PO DAILY 08/16/23 [History] Turmeric Root Extract [Turmeric] 500 mg PO DAILY 08/16/23 [History] lisinopriL [Zestril] 10 mg PO DAILY 08/16/23 [History] Simethicone [Gas-X] 250 mg PO Q4HR PRN 08/17/23 [History] Vit D (Unk) 1 tab PO DAILY 05/21/24 [History] oxyCODONE HCL [OxyIR] 5 mg PO Q6H PRN #14 tab 05/26/24 [Rx] Follow up Appointment(s)/Referral(s): Lissette Thapa MD [STAFF PHYSICIAN] - 1-2 Days Activity/Diet/Wound Care/Special Instructions: Do not drive until seen by Dr. Stevenson Teach drain care May shower after 48 hours from surgery Wear Raymon wrap at all times
[2024-05-27] MEDS: MULTIVITAMINS, THERA 1 EACH TAB PO SCH (10:42)
--- NOTE | 2024-05-27 11:46 | NM ---
EXAMINATION TYPE: NM sentinel node injection DATE OF EXAM: 05/26/2024 COMPARISON: NONE INDICATION: Abnormal mammogram. Informed consent was obtained. A timeout was performed. The area around the bilateral nipples was cleansed with alcohol. In a single dose, a total of 471.0 uCi Technetium 99m Tilmanocept was injected at the right breast. In a single dose, a total of 448.0 uCi Technetium 99m Tilmanocept was injected at the left breast. The patient tolerated the procedure very well. IMPRESSION: 1. Successful injection for sentinel node evaluation bilateral breasts. [facility], , 05/27/2024 11:44 AM
--- NOTE | 2024-05-27 11:56 | P.CONS ---
History of Present Illness - Reason for Consult Consult date: 05/27/24 Medical management medical management Requesting physician: Lissette Thapa - Chief Complaint Mastectomy - History of Present Illness This is a pleasant 64-year-old patient, follows with Dr. Fish Hernandez. Patient yesterday underwent bilateral mastectomy with bilateral sentinel node injections. Patient has biopsy-proven left breast invasive ductal carcinoma with involvement of possible bilateral axilla lymph nodes. This morning of pain is reasonably controlled. No nausea vomiting. Did tolerate a diet. Review of systems: GEN.: None EYES: None HEENT: None NECK: None RESPIRATORY: None CARDIOVASCULAR: None GASTROINTESTINAL: None GENITOURINARY: None MUSCULOSKELETAL: None LYMPHATICS: None HEMATOLOGICAL: None PSYCHIATRY: None NEUROLOGICAL: None Social history: Son lives with her. Does drink wine. Did smoke in the past. Physical examination: VITAL SIGNS: 99.5, 60, 18, 110 x 67 99% room air GENERAL: [BMI 26.3, sitting edge of the bed, awake, comfortable EYES: Pupils equal. Conjunctiva hawk l. HEENT: External appearance of nose and ears normal, oral cavity grossly normal. NECK: JVD not raised; masses not palpable. HEART: First and second heart sounds are normal; no edema. LUNGS: Respiratory rate normal; clear to auscultation. ABDOMEN: Soft, nontender, liver spleen not palpable, no masses palpable. PSYCH: Alert and oriented x3; mood and affect hawk l. MUSCULOSKELETAL:No Clubbing/cyanosis;muscles-grossly intact NEUROLOGICAL: Cranial nerves grossly intact; no facial asymmetry, power and sensation grossly intact. LYMPHATICS: No lymph nodes palpable in the axilla and neck Chest wall: Dressing over the chest wall. DAMIÁN drain. INVESTIGATIONS, reviewed in the clinical context: May 27, 2024: White count 9.8 hemoglobin 12.1 platelets 26 Assessment plan: -Bilateral mastectomy with bilateral sentinel node biopsy in a patient with invasive ductal carcinoma with involvement of bilateral axillary lymph nodes DAMIÁN drain in place. Pain control -Leukocytosis, reactive no clinical evidence of infection. No respiratory urinary symptoms. -Essential hypertension Zestril -Chronic intermittent dyspepsia He uses simethicone as needed Care was discussed with patient. Questions answered. Follow-up with PCP upon discharge. Thank you Dr. Mtz Past Medical History Past Medical History: Cancer, Hypertension 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, both genes , breast cancer. History of Any Multi-Drug Resistant Organisms: None Reported Past Surgical History: Appendectomy, Cholecystectomy, Hernia Repair, Tonsillectomy Additional Past Surgical History / Comment(s): colonoscopy, Past Anesthesia/Blood Transfusion Reactions: No Reported Reaction Additional Past Anesthesia/Blood Transfusion Reaction / Comm: no blood transfusion Past Psychological History: No Psychological Hx Reported Smoking Status: Former smoker Past Alcohol Use History: Occasional Additional Past Alcohol Use History / Comment(s): quit 2017 Past Drug Use History: None Reported - Past Family History Father Additional Family Medical History / Comment(s): mut-yth, melanoma Mother Family Medical History: Cancer Additional Family Medical History / Comment(s): breast Brother(s) Family Medical History: Cancer Additional Family Medical History / Comment(s): colon Medications and Allergies Home Medications Medication Instructions Recorded Confirmed Type Multivitamins, Thera [Multivitamin 1 tab PO DAILY 08/16/23 05/26/24 History (formulary)] Turmeric Root Extract [Turmeric] 500 mg PO DAILY 08/16/23 05/26/24 History lisinopriL [Zestril] 10 mg PO DAILY 08/16/23 05/26/24 History Simethicone [Gas-X] 250 mg PO Q4HR PRN 08/17/23 05/26/24 History Vit D (Unk) 1 tab PO DAILY 05/21/24 05/26/24 History oxyCODONE HCL [OxyIR] 5 mg PO Q6H PRN #14 tab 05/26/24 Rx Allergies Allergy/AdvReac Type Severity Reaction Status Date / Time amlodipine Allergy Unknown Verified 05/26/24 11:40 Sulfa (Sulfonamide Allergy Dyspnea Verified 05/26/24 11:40 Antibiotics) sulfamethoxazole Allergy Dyspnea Verified 05/26/24 11:40 [From Bactrim] trimethoprim [From Bactrim] Allergy Dyspnea Verified 05/26/24 11:40 Physical Exam Vitals: Vital Signs Temp Pulse Pulse Resp BP BP Pulse Ox 05/27/24 09:10 110/67 05/27/24 07:30 99.5 F 60 18 92/56 99 05/26/24 23:08 77 166/86 99 05/26/24 22:43 66 143/69 95 05/26/24 22:13 75 16 159/82 100 05/26/24 21:58 86 184/86 99 05/26/24 21:43 84 16 177/81 99 05/26/24 21:28 98.3 F 83 16 188/69 98 05/26/24 19:20 72 18 146/70 95 05/26/24 18:54 76 16 169/77 96 05/26/24 18:39 69 18 173/79 97 05/26/24 18:24 76 18 178/81 97 05/26/24 18:09 83 16 181/77 97 05/26/24 17:54 97.0 F L 84 14 189/97 100 05/26/24 12:49 67 14 157/83 100 05/26/24 11:43 97.4 F L 67 16 185/84 100 Intake and Output 05/26/24 05/27/24 05/27/24 22:59 06:59 14:59 Intake Total 960 Output Total 20 1535 Balance 940 -1535 Intake: IV 600 Oral 360 Output: Drainage 20 85 Left Anterior Chest 5 15 Right Anterior Chest 15 70 Urine 850 Stool 600 Other: # Voids 1 Weight 76.3 kg Results CBC & Chem 7: 05/27/24 05:50 Labs: Abnormal Lab Results - Last 24 Hours (Table) 05/27/24 Range/Units 05:50 WBC 11.8 H (3.8-10.6) k/uL Neutrophils # 9.6 H (1.3-7.7) k/uL
== END 2024-05-27 11:15 | disposition home or self-care (01) ==
LOC: OR 11:19 → 4FBP 17:35 → OR 05-27 11:15
PROVIDERS: ATTEND Surgery
DX: C50.912 Malignant neoplasm of unspecified site of left female breast (principal); G89.18 Other acute postprocedural pain; I10 Essential (primary) hypertension; E78.00 Pure hypercholesterolemia, unspecified; I73.00 Raynaud's syndrome without gangrene; J45.20 Mild intermittent asthma, uncomplicated; E04.2 Nontoxic multinodular goiter; Z15.09 Genetic susceptibility to other malignant neoplasm; I83.93 Asymptomatic varicose veins of bilateral lower extremities; D72.829 Elevated white blood cell count, unspecified; R10.13 Epigastric pain; Z79.899 Other long term (current) drug therapy; Z87.891 Personal history of nicotine dependence; Z86.16 Personal history of COVID-19; Z88.1 Allergy status to other antibiotic agents; Z88.2 Allergy status to sulfonamides; Z88.8 Allergy status to other drugs, medicaments and biological substances; Z80.3 Family history of malignant neoplasm of breast
CPT/HCPCS: 19303; 38525; 64450; 85025; 88342; 88307; 38792; A9520; J2250; J0330; J1644 ×2; J1100; J0690; J2405; J2003; J3010; J1171 ×2; J2795; J2704

== ENCOUNTER → 2024-06-04 | Outpatient (CLI) | payer BC ==
[2024-06-04 10:24] VITALS: BP 137/83; PULSE 79; RESP 16; TEMP 98.4
--- NOTE | 2024-06-04 10:35 | P.BCPO ---
Progress Note - Text Progress Note Date: 06/04/24 Radha is a 64 year old female status post bilateral mastectomy and bilateral axillary node sampling on 05-26-24. 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 The drains are bilaterally Lungs: Clear Heart: Regular rate and rhythm Incision: Clean and dry bilaterally there is some ecchymosis persistent particularly in the inferior aspect of the left chest wall there is some ecchymosis along the incision line bilaterally Impression: Patient doing well postoperative Plan: Follow with medical oncology Follow-up here in 2 weeks Remove both DAMIÁN drains Post Op Education - Post Op Education Post Op Education Provided Date: 06/04/24 - Functional Assessment Performed?: Yes (arm abduction passed) Path Report - Was patient given path report? Path Report Date Given: 06/04/24
== END ==
LOC: WWCWWP 09:47
PROVIDERS: ATTEND Surgery
DX: Z04.89 Encounter for examination and observation for other specified reasons (principal); Z85.3 Personal history of malignant neoplasm of breast; Z90.13 Acquired absence of bilateral breasts and nipples; Z88.8 Allergy status to other drugs, medicaments and biological substances; Z88.2 Allergy status to sulfonamides; Z88.1 Allergy status to other antibiotic agents

== ENCOUNTER → 2024-06-23 | Outpatient (CLI) | payer BC ==
[2024-06-23 08:05] VITALS: BP 130/83; PULSE 71; RESP 17; TEMP 97.9
--- NOTE | 2024-06-23 08:28 | P.PN ---
Subjective Progress Note Date: 06/23/24 Principal diagnosis: bilateral mastectomy Radha is a 64 year old female status post bilateral mastectomy and bilateral axillary node sampling on 05-26-24. She was concerned she may have a seroma. 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 The drains are removed bilaterally Lungs: Clear Heart: Regular rate and rhythm Incision: Clean and dry bilaterally no seroma Impression: Patient doing well postoperative Plan: Follow with medical oncology Follow-up here in 2 week Objective - Vital Signs Vital signs: Vital Signs Temp 97.9 F 06/23/24 08:03 Pulse 71 06/23/24 08:03 Resp 17 06/23/24 08:03 BP 130/83 06/23/24 08:03 Pulse Ox 99 06/23/24 08:03 FiO2 Intake & Output 06/22/24 06/23/24 06/23/24 18:59 06:59 18:59 Weight 73.028 kg
== END ==
LOC: WWCWWP 07:41
PROVIDERS: ATTEND Surgery
DX: Z90.13 Acquired absence of bilateral breasts and nipples (principal); Z88.1 Allergy status to other antibiotic agents; Z88.2 Allergy status to sulfonamides; Z88.8 Allergy status to other drugs, medicaments and biological substances; Z85.3 Personal history of malignant neoplasm of breast

== ENCOUNTER → 2024-07-02 | Outpatient (CLI) | payer BC ==
[2024-07-02 09:58] VITALS: BP 132/82; PULSE 89; RESP 17; TEMP 98.1
--- NOTE | 2024-07-02 10:10 | P.PN ---
Subjective Progress Note Date: 07/02/24 07-02-24 Radha is a 64 year old female status post bilateral mastectomy and bilateral axillary node sampling on 05-26-24. 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 Lungs: Clear Heart: Regular rate and rhythm Incision: Clean and dry bilaterally neuroma, the lateral aspect of the right chest wall there is some separation of the incision Impression: Patient doing well postoperative Plan: Follow with medical oncology Follow-up here in 2 weeks Reinforcement at the area where the incision is Objective - Vital Signs Vital signs: Vital Signs Temp 98.1 F 07/02/24 09:55 Pulse 89 07/02/24 09:55 Resp 17 07/02/24 09:55 BP 132/82 07/02/24 09:55 Pulse Ox 98 07/02/24 09:55 FiO2 Intake & Output 07/01/24 07/02/24 07/02/24 18:59 06:59 18:59 Weight 75.296 kg
== END ==
LOC: WWCWWP 08:45
PROVIDERS: ATTEND Surgery
DX: D05.12 Intraductal carcinoma in situ of left breast (principal); Z90.13 Acquired absence of bilateral breasts and nipples; Z88.8 Allergy status to other drugs, medicaments and biological substances; Z88.2 Allergy status to sulfonamides; Z88.1 Allergy status to other antibiotic agents

== ENCOUNTER → 2024-07-16 | Outpatient (CLI) | payer BC ==
[2024-07-16 08:21] VITALS: BP 166/79; PULSE 68; RESP 16; TEMP 97.5
--- NOTE | 2024-07-16 08:36 | P.PN ---
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 Lungs: Clear Heart: Regular rate and rhythm Incision: Clean and dry bilaterally no seroma, the lateral aspect of the right chest wall healed at this time Impression: Patient doing well postoperative dc sutures right chest wall Plan: Follow with medical oncology, starting chemotherapy next week Follow-up here in 4 months CC: Dr Hernandez Objective - Vital Signs Vital signs: Vital Signs Temp 97.5 F L 07/16/24 08:18 Pulse 68 07/16/24 08:18 Resp 16 07/16/24 08:18 BP 166/79 07/16/24 08:18 Pulse Ox 98 07/16/24 08:18 FiO2 Intake & Output 07/15/24 07/16/24 07/16/24 18:59 06:59 18:59 Weight 77.111 kg
== END ==
LOC: WWCWWP 08:05
PROVIDERS: ATTEND Surgery
DX: Z90.13 Acquired absence of bilateral breasts and nipples (principal); Z88.2 Allergy status to sulfonamides; Z88.1 Allergy status to other antibiotic agents; Z88.8 Allergy status to other drugs, medicaments and biological substances

== ENCOUNTER → 2024-11-20 | Outpatient (CLI) | payer BC ==
[2024-11-20 09:01] VITALS: BP 149/76; PULSE 87; RESP 16; TEMP 98.6
--- NOTE | 2024-11-20 09:42 | P.PN ---
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 Completed chemotherapy last week, she had 6 treatments she received taxotere, cyclophosphomide She gets a colonoscopy yearly and EGD every two years; due for colonoscopy in near future but now recovering from chemotherapy She is going to see radiation oncology Family History: mother: breast cancer brother: colon cancer 2 maternal cousins: breast cancer Hormonal History: menarche: 17 , age at first : 24, breast fed: yes menopause: 45 BCP: < 2 years hormones: none Surgical History: appy 2023 bilateral mastectomy and left node bilateral hernia gallbladder Medical History: HTN Social History: nicotine: former smoker stopped 7 years ago used to smoke 1 PPD for 25 years alcohol: family owns a wine shop, couple bottles on weekend drugs: none Objective - Vital Signs Vital signs: Vital Signs Temp 98.6 F 11/20/24 08:58 Pulse 87 11/20/24 08:58 Resp 16 11/20/24 08:58 BP 149/76 11/20/24 08:58 Pulse Ox 100 11/20/24 08:58 FiO2 Intake & Output 11/19/24 11/20/24 11/20/24 18:59 06:59 18:59 Weight 81.647 kg - Constitutional General appearance: Present: cooperative - EENT Eyes: Present: EOMI ENT: Present: hearing grossly normal - Neck Neck: Present: normal ROM - Respiratory Respiratory: bilateral: CTA - Cardiovascular Rhythm: regular Heart sounds: normal: S1, S2 - Gastrointestinal General gastrointestinal: Present: soft - Integumentary Integumentary: Present: normal turgor - Musculoskeletal Musculoskeletal: Present: gait normal - Psychiatric Psychiatric: Present: A&O x's 3, appropriate affect, intact judgment & insight - Additional findings Additional findings: Breast Exam: inspection: bilateral mastectomies palpation: right chest wall: no masses no evidence of recurrence right axilla: no adenopathy of concern left chest wall: no masses no evidence of recurrence left axilla: no adenopathy of concern Assessment and Plan Assessment: Impression: patient completed chemotherapy for [id number] (-) left breast cancer no recurrence Plan: follow with Dr. De Leon follow up here in 4 months appointment with radiation oncology CC: Mary
== END ==
LOC: WWCWWP 08:34
PROVIDERS: ATTEND Surgery
DX: C50.912 Malignant neoplasm of unspecified site of left female breast (principal); Z90.13 Acquired absence of bilateral breasts and nipples; Z88.2 Allergy status to sulfonamides; Z88.8 Allergy status to other drugs, medicaments and biological substances; Z92.21 Personal history of antineoplastic chemotherapy

== ENCOUNTER 2025-02-12 08:26 | Day surgery (SDC) | payer BC ==
[2025-02-09 12:10] VITALS: BMI 28.5
[2025-02-12] MEDS ORDERED: LIDOCAINE 1% (10MG/ML) FOR IV START INTRADERMA PRN (08:40)
[2025-02-12] MEDS: IV FLUID CONTINUATION 1,000 ML IV ONE (08:47)
[2025-02-12 08:58] VITALS: RESP 16; TEMP 97
[2025-02-12] MEDS: LACTATED RINGERS 1,000 ML IV SCH (09:03)
[2025-02-12] MEDS ORDERED: PROPOFOL 10 MG/ML 20 ML VIAL IV ONE (09:50)
[2025-02-12] MEDS ORDERED: MIDAZOLAM 2 MG/2 ML VIAL ONE (09:50)
[2025-02-12] MEDS ORDERED: LIDOCAINE 1% INJ 10MG/ML (20 ML MDV) ONE (09:50)
--- NOTE | 2025-02-12 10:19 | P.PCN ---
Date of Procedure: 02/12/25 Procedure(s) Performed: brief history: Patient is a pleasant 64-year-old white female scheduled for an elective upper endoscopy as well as colonoscopy as a part of evaluation of GERD and screening for colon cancer. She does have family history of colon cancer and history of MUHTY genetic mutation Procedure performed: Esophagogastroduodenoscopy with biopsy Colonoscopy with biopsy and snare polypectomy Preoperative diagnosis: GERD Screening for colon cancer and history of MUHTY by genetic mutation Anesthesia: MAC Procedure: After informed consent was obtained from the patient was brought into the endoscopy unit and IV sedation was administered by anesthesia under continuous monitoring. Initially upper endoscopy was done. The Olympus GF 160 video endoscope was inserted inserted into the mouth and esophagus intubated without any difficulty and was gradually advanced into the stomach and duodenum and carefully examined. The bulb and second part of the duodenum appeared normal. The scope was then withdrawn into the stomach adequately insufflated with air and upon careful examination the antrum and linear areas of erythema consistent with gastritis and biopsies were done from this area. Mucosa d body, cardia and fundus appeared normal. The scope was then withdrawn into the esophagus. The GE junction was located at 40 cm to the incisors. It appeared regular with no erythema erosions or ulcerations. There was 3 mm island of Jaimes's appearing mucosa just proximal to the GE junction that was biopsied. Rest of the esophagus appeared normal. Patient tolerated the procedure well. At this time the patient continued to remain sedation. Initial digital rectal examination was normal. Olympus CF 160 video colonoscope was then inserted into the rectum and gradually advanced to the cecum without any difficulty. Careful examination was performed as the scope was gradually being withdrawn. The prep was excellent. The cecum, had a 3 mm millimeter polyp that was removed by cold biopsy. There was a 5 mm and a 7 mm polyp in the cecum that was removed by cold snare polypectomy. In the transverse colon there was a 3 mm polyp that was removed by cold biopsy. The transverse colon and descending colon appeared normal. In the proximal sigmoid colon at 40 cm from the anal verge there was a 1.5 cm broad-based polyp that was removed by hot snare polypectomy. There was a 7 mm polyp in the rectosigmoid colon that was removed by cold snare polypectomy. Rest of the, sigmoid colon and rectum appeared normal. Retroflexion was performed in the rectum and no lesions were noted. Patient tolerated the procedure well. Impression: 1. Upper endoscopy revealed mild antral gastritis and short segment Jaimes's esophagus 2. Colonoscopy revealed: 3 mm, 5 mm and 7 mm cecal polyp status post cold biopsy and snare polypectomy respectively 3 mm transverse colon polyp status post cold biopsy 1.5 cm broad-based sigmoid colon polyp status post hot snare polypectomy 7 mm rectosigmoid polyp status post cold snare polypectomy Recommendations: Findings of this examination were discussed with the patient as well as her family. She was advised to follow-up with the biopsy results. Recommended repeat colonoscopy in 1 to 2 years. Continue Prevacid 30 mg daily and follow antireflux measures
[2025-02-12 10:50] VITALS: BP 137/83; PULSE 79
== END 2025-02-12 11:03 | disposition home or self-care (01) ==
LOC: ORWHC2ENDO 08:26
PROVIDERS: ATTEND Internal Medicine Gastroenterology
DX: Z12.11 Encounter for screening for malignant neoplasm of colon (principal); K29.50 Unspecified chronic gastritis without bleeding; D12.0 Benign neoplasm of cecum; D12.3 Benign neoplasm of transverse colon; D12.5 Benign neoplasm of sigmoid colon; K21.00 Gastro-esophageal reflux disease with esophagitis, without bleeding; K22.70 Barrett's esophagus without dysplasia; I10 Essential (primary) hypertension; Z87.891 Personal history of nicotine dependence; Z80.0 Family history of malignant neoplasm of digestive organs; Z88.1 Allergy status to other antibiotic agents; Z88.2 Allergy status to sulfonamides; Z88.8 Allergy status to other drugs, medicaments and biological substances; Z79.899 Other long term (current) drug therapy; Z91.048 Other nonmedicinal substance allergy status
CPT/HCPCS: 43239; 45380; 45385; 88305